=== PATIENT | female | born 1980 | race Caucasian/White ===

== ENCOUNTER 2017-04-30 05:35 | Inpatient (IN) | payer MEDICAID ==
[~2017-04-30] VITALS: Ht 162.6 cm; Wt 89.7 kg
[~2017-04-30 05:35] MED LIST: FERR28TA; PREN1TAB49
[2017-04-30 06:10] VITALS: Ht 162.6 cm; Wt 89.7 kg
[2017-04-30 06:11] VITALS: BP 131/70; PULSE 74; RESP 18
[2017-04-30] MEDS ORDERED: MISOPROSTOL 200 MCG TAB PR PRN ×3 (06:30→12:30)
[2017-04-30] MEDS ORDERED: AMPICILLIN 2 GM/NS (PMX) 100 ML IV SCH (06:30)
[2017-04-30] MEDS ORDERED: CARBOPROST 250 MCG INJ IM PRN ×3 (06:30→12:30)
[2017-04-30] MEDS ORDERED: METHYLERGONOVINE 0.2 MG INJ IM PRN ×3 (06:30→12:30)
[2017-04-30] MEDS ORDERED: OXYTOCIN 30 UNITS/LR 500 ML IV SCH (06:30)
[2017-04-30] MEDS ORDERED: OXYTOCIN 30 UNITS/LR 500 ML IV PRN ×4 (06:30→12:30)
[2017-04-30 06:53] LABS: ABNORMAL IP MESSAGE 1; BASOPHILS % 0.5 % (0.0-2.0); EOSINOPHILS # 0.1 10^3/ul (0.0-0.5); EOSINOPHILS % 1.5 % (0.0-7.0); HEMATOCRIT 33.5 % (37.0-47.0); LYMPHOCYTES # 2.3 10^3/ul (0.8-2.9); LYMPHOCYTES % 31.4 % (15.0-51.0); MEAN CORPUSCULAR HEMOGLOBIN 30.5 pg (29.0-33.0); MEAN CORPUSCULAR HGB CONC 32.8 g/dl (32.0-37.0); MEAN CORPUSCULAR VOLUME 92.8 fl (82.0-101.0); MEAN PLATELET VOLUME 13.5 fl (7.4-10.4); MONOCYTE # 0.5 10^3/ul (0.3-0.9); MONOCYTES % 7.2 % (0.0-11.0); NEUTROPHIL # 4.3 10^3/ul (1.6-7.5); NEUTROPHILS % 58.9 % (39.0-77.0); PLATELET COUNT 208 10^3/UL (140-415); RED BLOOD COUNT 3.61 10^6/ul (4.20-5.40); WHITE BLOOD COUNT 7.3 10^3/ul (4.8-10.8)
[2017-04-30] MEDS: LACTATED RINGER'S 1,000 ML IV SCH ×2 (06:57→07:54)
[2017-04-30 07:11] LABS: POSITIVE DIFF @See below
[2017-04-30 07:20] LABS: INR 0.9; PROTIME 12.1 Sec (12.2-14.2); PT RATIO 0.9
[2017-04-30 07:21] LABS: PARTIAL THROMBOPLASTIN TIME 27.3 Sec (25.0-35.0)
[2017-04-30] MEDS ORDERED: CEFAZOLIN 2 GM/50 ML (PMX) 50 ML IV SCH (07:30)
[2017-04-30] MEDS ORDERED: FENTAnyl 2MCG/ML-ROPIV 0.2% 100 ML ONE (07:57)
[2017-04-30] MEDS ORDERED: FENTAnyl 2MCG/ML-ROPIV 0.2% 100 ML BAG EPI SCH (09:30)
[2017-04-30] MEDS ORDERED: NALOXONE (0.4 MG/ML) INJ IV PRN (09:30)
[2017-04-30] MEDS ORDERED: HYDROCODONE/APAP (5/325) TAB PO PRN (09:30)
[2017-04-30] MEDS ORDERED: IBUPROFEN 600 MG TAB PO PRN (09:30)
[2017-04-30] MEDS ORDERED: MINERAL OIL LIGHT 10 ML VIAL TOP PRN (09:30)
[2017-04-30] MEDS ORDERED: LIDOCAINE 1% (MPF) 30 ML INJ INJ PRN (09:30)
--- NOTE | 2017-04-30 10:07 | LDN ---
Date/Time of Note Date/Time of Note DATE: 04/30/17 TIME: 10:06 Delivery Summary Placenta Delivered: Spontaneously Meconium: none Episiotomy: No Anesthesia type: Epidural Estimated blood loss: 200 Sponge & Needle done & correct: Yes All needle counts correct: Yes Any foreign bodies felt in the: No Problems: Delivery Information Apgars 1 Minute: 9 5 Minute: 9 Suctioning Nose & mouth suctioned at jace: Yes Delee suction performed: Yes Umbilical Cord Umbilical cord with: 3 Vessels Cord presentations: no nuchal cord Cord Blood was obtained: Yes HERNANDEZ CADENA M.D. Apr 30, 2017 10:07
--- NOTE | 2017-04-30 10:09 | HP ---
Date/Time of Note Date/Time of Note DATE: 04/30/17 TIME: 10:07 OB - History Hx of Present Free Text/Dictation @38+wks GA with SROM Hx of previous c/section She refuses repeat c/section and insists having a Despite extensive counselling in regards to maternal and consequences including uterine ruture and and maternal : 5 Para: 4 Care: Good Care Ultrasounds: Normal mid trimester US Obstetrical Complications: None Medical Complications: None Past Family/Social History * Past Medical, Surgical, Family and Obstetric Histories reviewed from chart. OB Admission Exam Vital Signs Vital Signs Vital Signs Date Time Temp Pulse Resp B/P Pulse Ox O2 Delivery O2 Flow Rate FiO2 04/30/17 06:11 98.1 74 18 131/70 Room Air Physical Exam Abdomen: WNL Extremities: Normal Cervical Dilatation: 7cm Effacement: 75% Membranes: Ruptured Amniotic Fluid: Clear Heart Rate: 140's Accelerations: Accelerations Present Varibility: Moderate Contractions on Admission: < 5 Minutes Apart Last 72 hours Lab Results CBC & BMP 04/30/17 06:30 OB Assessment/Plan Reason for admission: observation Plan: Expectant Management HERANNDEZ CADENA M.D. Apr 30, 2017 10:09
[2017-04-30] MEDS ORDERED: LACTATED RINGER'S 1,000 ML IV SCH (12:12)
[2017-04-30 12:23] VITALS: BP 115/68; PULSE 53; RESP 16
[2017-04-30] MEDS ORDERED: LANOLIN 7 GM TUBE TOP PRN (12:30)
[2017-04-30] MEDS ORDERED: OXYCODONE/ACETAMINOPHEN (5/325) TAB PO PRN (12:30)
[2017-04-30] MEDS ORDERED: AMPICILLIN 1 GM/NS (PMX) 50 ML IV SCH (13:30)
[2017-04-30 13:55] VITALS: BP 122/59; PULSE 54; RESP 18
[2017-04-30 16:07] VITALS: BP 106/55; PULSE 51; RESP 16
[2017-04-30] MEDS ORDERED: INFLUENZA VIRUS VACCINE 0.5 ML SYG IM* ONE (17:00)
[2017-04-30] MEDS: IBUPROFEN 600 MG TAB PO SCH ×3 (18:00→23:30)
[2017-04-30 20:00] VITALS: BP 111/64; PULSE 53; RESP 18
[2017-04-30] MEDS: SENNA/DOCUSATE NA (8.6MG/50MG) TAB PO SCH (21:15)
[2017-05-01] VITALS: BP 100/56; PULSE 62; RESP 18
[2017-05-01 04:00] VITALS: BP 118/56; PULSE 57; RESP 18
[2017-05-01] MEDS: IBUPROFEN 600 MG TAB PO SCH ×3 (05:36→18:01)
[2017-05-01 08:15] VITALS: BP 106/59; PULSE 48; RESP 18
[2017-05-01 11:44] LABS: BASOPHILS % 0.5 % (0.0-2.0); EOSINOPHILS # 0.1 10^3/ul (0.0-0.5); HEMATOCRIT 33.1 % (37.0-47.0); HEMOGLOBIN 10.6 g/dl (12.0-16.0); LYMPHOCYTES # 2.4 10^3/ul (0.8-2.9); LYMPHOCYTES % 27.3 % (15.0-51.0); MEAN CORPUSCULAR HEMOGLOBIN 29.5 pg (29.0-33.0); MEAN CORPUSCULAR VOLUME 92.2 fl (82.0-101.0); MEAN PLATELET VOLUME 12.9 fl (7.4-10.4); MONOCYTE # 0.5 10^3/ul (0.3-0.9); MONOCYTES % 5.3 % (0.0-11.0); NEUTROPHIL # 5.8 10^3/ul (1.6-7.5); NEUTROPHILS % 65.3 % (39.0-77.0); PLATELET COUNT 206 10^3/UL (140-415); RED BLOOD COUNT 3.59 10^6/ul (4.20-5.40); RED CELL DISTRIBUTION WIDTH 15.3 % (11.5-14.5); WHITE BLOOD COUNT 8.8 10^3/ul (4.8-10.8)
[2017-05-01 11:56] LABS: RUBELLA ANTIBODY - IGG 2.04 index
[2017-05-01] MEDS: SENNA/DOCUSATE NA (8.6MG/50MG) TAB PO SCH ×2 (11:58→20:18)
[2017-05-01 15:45] VITALS: BP 116/63; PULSE 56; RESP 18
--- NOTE | 2017-05-01 18:45 | QN ---
Documentation Comment PPD#1 is stable afebrile tolerates diet No VB +flatus +adequate urine VS stable Gen NAD Abd sodt NT ND Genitalai No blood at perinium --->discharge plan tomorrow HERNANDEZ CADENA M.D. May 01, 2017 18:45
--- NOTE | 2017-05-01 18:47 | DS ---
Date/Time of Note Date/Time of Note DATE: 05/01/17 TIME: 18:46 Discharge Summary Admission/Discharge Info Admit Date/Time Apr 30, 2017 at 06:08 Discharge Date/Time Discharge Diagnosis Patient Condition: Good Procedures Vaginal delivery Hospital Course Uneventful Home Meds Reported Medications Ferrous Sulfate (Ferrous Sulfate) 1 Tab Tablet 04/29/10 Vits W-Ca,Fe,Fa(<1MG) () 1 Tab Tablet 04/29/10 Primary Care Provider Not On Staff Doctor Pending Labs Laboratory Tests Test 04/30/17 20:30 05/01/17 10:29 05/01/17 11:17 05/01/17 15:28 Bedside Glucose 91mg/dL (70-220) 125mg/dL (70-220) 110mg/dL (70-220) White Blood Count 8.810^3/ul (4.8-10.8) Red Blood Count 3.5910^6/ul (4.20-5.40) Hemoglobin 10.6g/dl (12.0-16.0) Hematocrit 33.1% (37.0-47.0) Mean Corpuscular Volume 92.2fl (82.0-101.0) Mean Corpuscular Hemoglobin 29.5pg (29.0-33.0) Mean Corpuscular Hemoglobin Concent 32.0g/dl (32.0-37.0) Red Cell Distribution Width 15.3% (11.5-14.5) Platelet Count 51244^3/UL (140-415) Mean Platelet Volume 12.9fl (7.4-10.4) Neutrophils % 65.3% (39.0-77.0) Lymphocytes % 27.3% (15.0-51.0) Monocytes % 5.3% (0.0-11.0) Eosinophils % 1.0% (0.0-7.0) Basophils % 0.5% (0.0-2.0) Nucleated Red Blood Cells % 0.0/100WBC (0.0-0.0) Neutrophils # 5.810^3/ul (1.6-7.5) Lymphocytes # 2.410^3/ul (0.8-2.9) Monocytes # 0.510^3/ul (0.3-0.9) Eosinophils # 0.110^3/ul (0.0-0.5) Basophils # 0.010^3/ul (0.0-0.1) Nucleated Red Blood Cells # 0.010^3/ul (0.0-0.0) HERNANDEZ CADENA M.D. May 01, 2017 18:47
[2017-05-01 20:17] VITALS: BP 126/64; PULSE 58; RESP 19
[2017-05-02] MEDS: IBUPROFEN 600 MG TAB PO SCH ×3 (00:33→12:20)
[2017-05-02 04:00] VITALS: BP 116/56; PULSE 56; RESP 20
[2017-05-02 08:50] VITALS: BP 107/68; PULSE 54; RESP 17
[2017-05-02] MEDS: SENNA/DOCUSATE NA (8.6MG/50MG) TAB PO SCH (09:32)
[2017-05-03] MEDS ORDERED: DIPHTH/TET/ACEL PERTUSS (ADULT) 0.5 ML VIAL IM* ONE (09:00)
== END 2017-05-02 15:50 | disposition home or self-care (01) | DRG 775 ==
LOC: L-D 05:35 → OBT 05:35 → L-D 06:08 → OBT 06:08 → L-D 07:43 → PP1 12:07
PROVIDERS: ADMIT Obstetrics & Gynecology; ATTEND Obstetrics & Gynecology
PROC: 10E0XZZ Delivery of Products of Conception, External Approach (ICD-10-PCS; principal; 2017-04-30)
PROC: 3E0P3VZ Introduction of Hormone into Female Reproductive, Percutaneous Approach (ICD-10-PCS; 2017-04-30)
DX: O80 Encounter for full-term uncomplicated delivery (principal); Z37.0 Single live birth; Z3A.37 37 weeks gestation of pregnancy
CPT/HCPCS: 62319; 82947; 82962; 85025; 85610; 85730; 86592; 86762; 86850; 86900; 86901; 87340; 90686; 90715; G0463; J0290; J2590; J3010; J7120